=== PATIENT | male | born 1950 | race Caucasian/White ===

== ENCOUNTER 2018-03-13 17:04 | Emergency (ER) | payer OTHER ==
[~2018-03-13] VITALS: Ht 182.9 cm; Wt 68.0 kg
--- NOTE | ~2018-03-13 | EKG ---
[address] [address] ELECTROCARDIOGRAM REPORT Name: BRAULIO CARRASCO Room #: [facility]#: [id number] Admission: 03/13/18 Attend Phys: Discharge: 03/13/18 Date of : 52 Report #: [id number] THIS REPORT FOR: //name// [facility] ED Test Date: 2018-03-13 Test Time: 17:58:16 Pat Name: BRAULIO CARRASCO Department: Room: Gender: M Medical Assistant [facility] 1950 Requested By: Fidel Muniz Order Number: [id number] MD: Jc German Measurements Intervals [place] Rate: 65 P: 74 WV: 149 QRS: 14 QRSD: 108 T: 1 QT: 445 QTc: 463 Interpretive Statements Sinus rhythm Inferior infarct, 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
[~2018-03-13 17:04] MED LIST: NORVASC5 MG PO
[2018-03-13 18:52] LABS: ABSOLUTE NEUTROPHILS 4.4 thou/uL (1.4-8.2); BASOPHILS 0.5 % (0.0-2.0); EOSINOPHILS 2.5 % (0.0-3.0); HEMATOCRIT 40.1 % (42.0-52.0); LYMPHOCYTES 17.1 % (24.0-44.0); MCH 32.3 pg (26.0-34.0); MCHC 34.9 g/dL (28.0-37.0); MCV 92.6 fL (80.0-100.0); MONOCYTES 6.5 % (1.0-8.0); PLATELET COUNT 164 thou/uL (150-400); POLYS 73.4 % (36.0-66.0); RBC 4.33 mil/uL (4.50-6.00)
[2018-03-13 18:58] LABS: ANION GAP 9 mmol/L (7-16); BUN 31 mg/dL (7-18); CALCIUM 9.2 mg/dL (8.5-10.1); CHLORIDE 108 mmol/L (98-107); CO2 28 mmol/L (21-32); CREATININE 1.6 mg/dL (0.7-1.3); GLUCOSE 88 mg/dL (74-106); POTASSIUM 4.3 mmol/L (3.5-5.1); SODIUM 145 mmol/L (136-145)
[2018-03-13] MEDS ORDERED: CARVEDILOL12.5 MG PO (19:01)
[2018-03-13] MEDS ORDERED: LIPITOR10 MG PO (19:01)
[2018-03-13] MEDS ORDERED: PROPECIA1 MG PO (19:02)
[2018-03-13] MEDS ORDERED: HYDRALAZINE 2525 MG PO (19:02)
[2018-03-13] MEDS ORDERED: FLOMAX0.4 MG PO (19:02)
[2018-03-13] MEDS ORDERED: MIRTAZAPINE7.5 MG PO (19:02)
[2018-03-13] MEDS ORDERED: ASPIR 8181 MG PO (19:03)
[2018-03-13] MEDS ORDERED: CENTRUM SILVER1 EAC2 PO (19:03)
[2018-03-13] MEDS ORDERED: KRILL OIL500 MG PO (19:03)
[2018-03-13 19:07] LABS: TROPONIN-I <0.06 ng/mL (<0.06)
== END 2018-03-13 21:05 | disposition home or self-care (01) ==
LOC: ER 17:04
PROVIDERS: Emergency Medicine
DX: I10 Essential (primary) hypertension (principal); R07.9 Chest pain, unspecified; Z86.73 Personal history of transient ischemic attack (TIA), and cerebral infarction without residual deficits; Z88.0 Allergy status to penicillin